=== PATIENT | female | born 1985 | race Caucasian/White ===

== ENCOUNTER 2020-05-27 19:50 | Emergency (ER) | payer SELFPAY ==
[~2020-05-27] VITALS: Ht 170.2 cm; Wt 95.5 kg
--- NOTE | 2020-05-27 19:54 | PHYS DOC ---
Past History Past Medical History: No Pertinent History Past Surgical History: Other Alcohol Use: Rarely Drug Use: None General Adult HPI: HPI: ".. I ve been sick since yesterday.. angella more on Lt. lower.. it angella like UTI.. but not like that .. nauseated.. I hurt.. " Patient is a 35 year old female who presents with above hx and complaints of Lt flank back and abdomen pain. No history of travel. No history of severe ill contacts. No history of trauma. No history of bad food intake. Pain has been present on the left lower flank and abdomen since yesterday. No history of ovarian cyst. No history of colitis with her family members. No history of kidney stones of her family members. Pt. follows with [facility]. Pt. smokes tobacco and marijuana Review of Systems: Review of Systems: Constitutional: Denies fever or chills Eyes: Denies change in visual acuity HENT: Denies nasal congestion or sore throat Respiratory: Denies cough or shortness of breath Cardiovascular: Denies chest pain or edema GI: Complains of left abdominal pain, nausea,. Denies vomiting, bloody stools or diarrhea : Denies dysuria Musculoskeletal: Denies back pain or joint pain Integument: Denies rash Neurologic: Denies headache, focal weakness or sensory changes Endocrine: Denies polyuria or polydipsia Lymphatic: Denies swollen glands Psychiatric: Denies depression or anxiety Family History: Family History: Noncontributory to presentation Current Medications: Current Meds: See nursing for home meds Allergies: Allergies: Allergies Coded Allergies Type Severity Reaction Last Updated Verified Sulfa (Sulfonamide Antibiotics) Allergy Unknown 07/18/15 Yes Physical Exam: PE: Constitutional: Moderate acute distress, non-toxic appearance. [] HENT: Normocephalic, atraumatic, bilateral external ears normal, oropharynx moist, no oral exudates, nose normal. [] Eyes: PERRLA, EOMI, conjunctiva normal, no discharge. [] Neck: Normal range of motion, no tenderness, supple, no stridor. [] Cardiovascular:Heart rate regular rhythm, no murmur [] Lungs & Thorax: Bilateral breath sounds clear to auscultation [] Abdomen: Bowel sounds decreased, soft, mid and lower abdomen tenderness, no masses, no pulsatile masses. [] Skin: Warm, dry, no erythema, no rash. [] Back: No tenderness, no CVA tenderness. [] Extremities: No tenderness, no cyanosis, no clubbing, ROM intact, no edema. [] Neurologic: Alert and oriented X 3, normal motor function, normal sensory function, no focal deficits noted. [] Psychologic: Affect normal, judgement normal, mood normal. [] EKG: EKG: [] Radiology/Procedures: Radiology/Procedures: [][address] [address] IMAGING REPORT Signed PATIENT: LAUREANO ESTEVES ACCOUNT: [id number] : 1985 LOCATION: ER AGE: 35 SEX: F EXAM STATUS: REG ER ORD. PHYSICIAN: VALENTÍN MAGAÑA MD REASON: Left sided abdomen and chest pain PROCEDURE: ACUTE ABDOMEN SERIES Abdominal Series dated 05/27/2020. No comparison available. Clinical Indication: Abdominal pain. Findings: Single upright PA view the chest shows normal heart and mediastinal contours. The lungs are clear without focal consolidation. Vascular interstitium is within normal limits. Flat and upright views of the abdomen show nondilated gas filled loops of bowel. No air-fluid level on the upright view. Clips in the right upper quadrant compatible with prior cholecystectomy. No abnormal calcifications are identified. There is no evidence of pneumoperitoneum. Impression chest: No acute radiographic abnormality. Impression abdomen: Non-obstructive bowel gas pattern. Electronically signed by: Sundeep Mckinley MD (05/27/2020 9:58 PM) [id number] DICTATED AND SIGNED BY: SUNDEEP MCKINLEY MD DATE: 05/27/20 2158 CC: VALENTÍN MAGAÑA MD; SAFIA CLEMENT DO ~MTH0 0 Heart Score: Risk Factors: Risk Factors: DM, Current or recent (<one month) smoker, HTN, HLP, family history of CAD, obesity. Risk Scores: Score 0 - 3: 2.5% MACE over next 6 weeks - Discharge Home Score 4 - 6: 20.3% MACE over next 6 weeks - Admit for Clinical Observation Score 7 - 10: 72.7% MACE over next 6 weeks - Early Invasive Strategies Course & Med Decision Making: Course & Med Decision Making Pertinent Labs and Imaging studies reviewed. (See chart for details) Still complaints of Lt sided abdomen pain. No improvement. Declines pain meds . CT ordered. [address] 1:15. request discharge home. Patient follow-up with primary care. Patient remain on clear fluid diet. Patient return if any concerns. Patient take Tylenol and ibuprofen for pain. Impression: 1.Abdomen Pain- Lt.lower abdomen [] Dragon Disclaimer: Dragon Disclaimer: This electronic medical record was generated, in whole or in part, using a voice recognition dictation system. Departure Departure: Referrals: SAFIA CLEMENT DO (PCP) Dragon Disclaimer This chart was dictated in whole or in part using Voice Recognition software in a busy, high-work load, and often noisy Emergency Department environment. It may contain unintended and wholly unrecognized errors or omissions. Dragon Disclaimer This chart was dictated in whole or in part using Voice Recognition software in a busy, high-work load, and often noisy Emergency Department environment. It may contain unintended and wholly unrecognized errors or omissions. VALENTÍN MAGAÑA MD May 27, 2020 19:54
[2020-05-27] MEDS ORDERED: ONDANSETRON PF 4 MG/2 ML VIAL. IVP ONE (21:00)
[2020-05-27] MEDS ORDERED: IV RINGERS SOLUTION,LACTATED 1,000 ML IV SCH (21:00)
[2020-05-27] MEDS ORDERED: MORPHINE SULFATE 10 MG/ML SYRINGE. SQ ONE (21:00)
[2020-05-27] MEDS ORDERED: FAMOTIDINE 20 MG/2 ML VIAL IVP ONE (21:00)
[2020-05-27 21:05] LABS: BARBITURATES NEG (NEG); BENZODIAZEPINES NEG (NEG); CANNABINOIDS POS (NEG); COCAINE NEG (NEG); METHADONE NEG (NEG); OPIATES NEG (NEG); PHENCYCLIDINE NEG (NEG)
[2020-05-27 21:26] LABS: AMPHETAMINE/METHAMPHETAMINE NEG (NEG)
[2020-05-27 21:34] LABS: BASO % 1 % (0-3); EOS # 0.2 x10^3/uL (0.0-0.7); EOS % 2 % (0-3); HEMATOCRIT 40.2 % (36.0-47.0); HEMOGLOBIN 13.6 g/dL (12.0-15.5); LYMPH # 2.5 x10^3/uL (1.0-4.8); LYMPH % 35 % (24-48); MEAN CORPUSCULAR HEMOGLOBIN 33 pg (25-35); MEAN CORPUSCULAR HGB CONC 34 g/dL (31-37); MEAN CORPUSCULAR VOLUME 96 fL (79-100); MONO # 0.6 x10^3/uL (0.0-1.1); MONO % 9 % (0-9); NEUT # 3.9 x10^3uL (1.8-7.7); NEUT % 54 % (31-73); PLATELET COUNT 195 x10^3/uL (140-400); RED BLOOD COUNT 4.19 x10^6/uL (3.50-5.40); RED CELL DISTRIBUTION WIDTH 13.2 % (11.5-14.5); WHITE BLOOD COUNT 7.3 x10^3/uL (4.0-11.0)
[2020-05-27 21:53] LABS: GFR 62.4; POTASSIUM 3.7 mmol/L (3.5-5.1)
[2020-05-27 22:00] LABS: ALBUMIN 3.7 g/dL (3.4-5.0); DIRECT BILIRUBIN 0.1 mg/dL (0.0-0.2); TOTAL BILIRUBIN 0.2 mg/dL (0.2-1.0)
--- NOTE | 2020-05-27 22:01 | RAD ---
Abdominal Series dated 05/27/2020. No comparison available. Clinical Indication: Abdominal pain. Findings: Single upright PA view the chest shows normal heart and mediastinal contours. The lungs are clear wit hout focal consolidation. Vascular interstitium is within normal limits. Flat and upright views of the abdomen show nondilated gas filled loops of bowel. No air-fluid level o n the upright view. Clips in the right upper quadrant compatible with prior cholecystectomy. No abnor mal calcifications are identified. There is no evidence of pneumoperitoneum. Impression chest: No acute radiographic abnormality. Impression abdomen: Non-obstructive bowel gas pattern. Electronically signed by: Sundeep Mckinley MD (05/27/2020 9:58 PM) [id number]
[2020-05-27 22:20] LABS: BACTERIA,URINE FEW /HPF (0-FEW); BILIRUBIN,URINE NEG (NEG); CLARITY,URINE CLEAR; COLOR,URINE YELLOW; GLUCOSE,URINE NEG (NEG); NITRITE,URINE NEG (NEG); RBC,URINE OCC /HPF (0-2); SQUAMOUS EPITHELIAL CELL,UR OCC /LPF; UROBILINOGEN,URINE 0.2 mg/dL (0.2 mg/dL); WBC,URINE OCC /HPF (0-4)
[2020-05-28] MEDS ORDERED: ONDANSETRON PF 4 MG/2 ML VIAL. IVP ONE (00:45)
[2020-05-28] MEDS ORDERED: ONDANSETRON PF 4 MG/2 ML VIAL. ONE (01:09)
[2020-05-28 01:15] VITALS: BP 132/68
[2020-05-28] MEDS ORDERED: IOHEXOL 300 MG/ML 75 ML VIAL. IV ONE (01:15)
[2020-05-28] MEDS ORDERED: IOHEXOL 240 MG/ML 50ML VIAL. PO ONE (01:30)
== END 2020-05-28 01:25 | disposition home or self-care (01) ==
LOC: ER 19:50
DX: R10.32 Left lower quadrant pain (principal); R11.0 Nausea; Z98.890 Other specified postprocedural states; Z88.2 Allergy status to sulfonamides
CPT/HCPCS: 36415; 74022; 80048; 80076; 80307; 81001; 81025; 82150; 83690; 84702; 85025; 85610; 85730; 96361; 96372; 96374; 96375; 99284; J2270; J2405; J3490; J7120

== ENCOUNTER 2020-12-09 19:50 | Emergency (ER) | payer SELFPAY ==
[~2020-12-09] VITALS: Ht 170.2 cm; Wt 95.5 kg
--- NOTE | 2020-12-09 20:12 | PHYS DOC ---
Past History Past Medical History: Other Additional Past Medical Histor: "KIDNEY PROBLEMS" (HERMAN EGAN APRN) Past Surgical History: Cholecystectomy (HERMAN EGAN APRN) Alcohol Use: None Drug Use: None (HERMAN EGAN APRN) General Adult EDM: Chief Complaint: CHEST PAIN HPI: HPI: Patient is a 35-year-old female who presents to the ER for chest pain. Per EMS patient is Covid positive. When I entered patient's room she refused to answer any questions and continued to lay on her belly in the bed. I asked patient wh at was bringing her here and she would not answer. I told patient that I need to know what is bringing her in to the ER to be able to help her. Patient reports that she is having left-sided chest pain. She describes it as a cramp. She rates it 8 out of 10. No radiation of pain. No treatment prior to arrival. Pain is worse with inspiration and movement. No alleviating factors. Patient is also reporting nausea, vomiting, shortness of breath, lightheadedness, productive cough. Patient's vital signs are stable and she is afebrile. She was diagnosed with COVID-19 on December 05. (HERMAN EGAN APRN) Review of Systems: Review of Systems: 14 body systems of the review of systems have been reviewed. See HPI for pertinent positive and negative responses, otherwise all other systems are negative, nonpertinent or noncontributory (HERMAN EGAN APRN) Allergies: Allergies: Allergies Coded Allergies Type Severity Reaction Last Updated Verified Sulfa (Sulfonamide Antibiotics) Allergy Unknown 07/18/15 Yes (HERMAN EGAN APRN) Physical Exam: PE: Constitutional: Well developed, well nourished, no acute distress, non-toxic appearance. [] HENT: Normocephalic, atraumatic Eyes: PERRLA, EOMI, conjunctiva normal, no discharge. [] Neck: Normal range of motion, no tenderness, supple, no stridor. [] Cardiovascular:Heart rate regular rhythm, no murmur, no chest wall tenderness with palpation [] Lungs & Thorax: Lung sounds coarse Abdomen: Bowel sounds normal, soft, no tenderness, no masses, no pulsatile masses. [] Skin: Warm, dry, no erythema, no rash. [] Back: Normal range of motion Extremities: No tenderness, no cyanosis, no clubbing, ROM intact, no edema. [] Neurologic: Alert and oriented X 3, normal motor function, normal sensory function, no focal deficits noted. [] Psychologic: Affect normal, judgement normal, mood normal. [] (HERMAN EGAN APRN) Current Patient Data: Labs: Laboratory Tests Test 12/09/20 20:20 White Blood Count 5.1 x10^3/uL Red Blood Count 4.99 x10^6/uL Hemoglobin 16.3 g/dL Hematocrit 47.0 % Mean Corpuscular Volume 94 fL Mean Corpuscular Hemoglobin 33 pg Mean Corpuscular Hemoglobin Concent 35 g/dL Red Cell Distribution Width 12.9 % Platelet Count 148 x10^3/uL Neutrophils (%) (Auto) 51 % Lymphocytes (%) (Auto) 36 % Monocytes (%) (Auto) 12 % Eosinophils (%) (Auto) 1 % Basophils (%) (Auto) 1 % Neutrophils # (Auto) 2.6 x10^3uL Lymphocytes # (Auto) 1.8 x10^3/uL Monocytes # (Auto) 0.6 x10^3/uL Eosinophils # (Auto) 0.0 x10^3/uL Basophils # (Auto) 0.0 x10^3/uL Prothrombin Time 11.0 SEC Prothromb Time International Ratio 1.1 Activated Partial Thromboplast Time 27 SEC D-Dimer (Tamara) 0.32 mg/L Sodium Level 140 mmol/L Potassium Level 3.8 mmol/L Chloride Level 103 mmol/L Carbon Dioxide Level 22 mmol/L Anion Gap 15 Blood Urea Nitrogen 12 mg/dL Creatinine 0.8 mg/dL Estimated GFR (Cockcroft-Gault) 80.7 BUN/Creatinine Ratio 15 Glucose Level 95 mg/dL Calcium Level 9.1 mg/dL Total Bilirubin 0.5 mg/dL Aspartate Amino Transf (AST/SGOT) 29 U/L Alanine Aminotransferase (ALT/SGPT) 50 U/L Alkaline Phosphatase 98 U/L Troponin I Quantitative < 0.017 ng/mL Total Protein 8.0 g/dL Albumin 4.3 g/dL Albumin/Globulin Ratio 1.2 Current Medications Medications (Trade) Dose Ordered Sig/Parag Route PRN Reason Start Time Stop Time Status Last Admin Dose Admin Iohexol (Omnipaque 300 Mg/ml) 75 ml 1X ONCE IV 8/6/21 20:45 12/09/20 20:46 DC 12/09/20 21:42 Info (Do NOT chart on this entry -- for MONITORING) 1 each PRN DAILY PRN MC SEE COMMENTS 12/09/20 20:45 12/11/20 20:44 (HERMAN EGAN APRN) EKG: EKG: EKG performed by ER staff at 1959 shows sinus rhythm, no STEMI as read by Dr. Franz. [] (HERMAN EGAN APRN) EKG: My interpretation EKG shows a sinus bradycardia 54 bpm. No findings of acute STEMI of contralateral changes. Essentially a normal EKG. Time EKG is 1959 hrs. (VALENTÍN FRANZ MD) Radiology/Procedures: Radiology/Procedures: [] (HERMAN EGAN APRN) Radiology/Procedures: [address] [address] IMAGING REPORT Signed PATIENT: LAUREANO ESTEVES ACCOUNT: [id number] : 1985 LOCATION: ER AGE: 35 SEX: F EXAM STATUS: PRE ER ORD. PHYSICIAN: HERMAN EGAN APRN REASON: Covid positive, cp PROCEDURE: CHEST AP ONLY XR CHEST 1V History: Reason: Covid positive, cp / Spl. Instructions: / History: Comparison: None. Findings: No consolidation or pleural effusion. Normal heart size. No pneumothorax. Impression: 1. No acute cardiopulmonary process. Electronically signed by: Carrillo Zelaya DO (12/09/2020 10:25 PM) [facility] DICTATED AND SIGNED BY: CARRILLO ZELAYA DO DATE: 12/09/20 8132 CC: VALENTÍN FRANZ MD; SAFIA CLEMENT DO; HERMAN EGAN APRN ~MTH0 [address] [address] IMAGING REPORT Signed PATIENT: LAUREANO ESTEVES ACCOUNT: [id number] : 1985 LOCATION: ER AGE: 35 SEX: F EXAM STATUS: PRE ER ORD. PHYSICIAN: HERMAN EGAN APRN REASON: OMNI 300, 75ML IV.Covid positive, chest pain PROCEDURE: CT CHEST W/CONTRAST INDICATION: Reason: OMNI 300, 75ML IV.Covid positive, chest pain / Spl. Ins tructions: / History: COMPARISON: Chest x-ray from same day TECHNIQUE: Axial CT images obtained through the chest. Intravenous contrast utilized. Angiogram 3D images processed per protocol. One or more of the following individualized dose reduction techniques were utilized for this examination: 1. Automated exposure control; 2. Adjustment of the mA and/or kV according to patient size; 3. Use of iterative reconstruction technique. FINDINGS: No evidence of pneumothorax. Linear opacities at the lung bases as well as the right lung anteriorly. Partially visualized liver is low density. Can be seen with fatty infiltration. Heterogenous enhancement of the partially visualized spleen could be from phase of contrast but would obscure splenic lesion. There is mild prominence of the esophageal wall. The ascending thoracic aorta is mildly prominent in size measuring up to about 41 mm. No dissection flap is seen within. Suboptimal contrast for evaluation the pulmonary arteries with no embolus seen in the main, right main or left main pulmonary artery but the more peripheral vessels not well evaluated. Mild degenerative changes of spine. IMPRESSION: There is some dilatation of the ascending thoracic aorta without dissection flap. There is a couple linear opacities in the bilateral lungs which could be secondary to atelectasis or mild infiltrate Mild prominence of the esophageal wall. Would correlate with symptoms to ensure that this is not from a pathologic cause such as esophagitis. Electronically signed by: Aurea Escoto MD (12/09/2020 10:23 PM) [id number] DICTATED AND SIGNED BY: AUREA ESCOTO MD DATE: 12/09/202211 CC: VALENTÍN FRANZ MD; SAFIA CLEMENT DO; HERMAN EGAN APRN ~MTH0 0 (VALENTÍN FRANZ MD) Heart Score: C/O Chest Pain: Yes HEART Score for Chest Pain: HEART Score for Chest Pain Response (Comments) Value History Slighlty/Non-Suspicious 0 ECG Normal 0 Age < 45 0 Risk Factors No Risk Factors 0 Troponin < Normal Limit 0 Total 0 Risk Factors: Risk Factors: DM, Current or recent (<one month) smoker, HTN, HLP, family history of CAD, obesity. Risk Scores: Score 0 - 3: 2.5% MACE over next 6 weeks - Discharge Home Score 4 - 6: 20.3% MACE over next 6 weeks - Admit for Clinical Observation Score 7 - 10: 72.7% MACE over next 6 weeks - Early Invasive Strategies (HERMAN EGAN APRN) Course & Med Decision Making: Course & Med Decision Making Pertinent Labs and Imaging studies reviewed. (See chart for details) Patient is a 35-year-old female being seen for chest pain. Patient is Covid positive. Work-up in the ER consisted of blood, chest x-ray, and CT of chest, EKG. EKG unremarkable, CBC and CMP unremarkable. Patient had negative D-dimer. Patient's heart score is 0. Chest x-ray and CT scan of chest are pending at this time. I discussed patient's case with Dr. Franz. He will assume care of patient at this time 2203. (HERMAN EGAN APRN) Course & Med Decision Making See Guille charting prior shift change for detail. Pt. initially refused to see or discuss her condition with nursing practitioner. Patient had not received Covid vaccination-patient did states she would rather than get the vaccination. Patient however now feeling ill from the Covid viral syndrome and requesting all the drugs that President Carlo got. Requesting to be started on chloroquine, and large doses of antibiotics. Patient does continue to smoke tobacco and marijuana. Patient denies any history immunosuppression. Has not followed with her primary care. Patient in past has followed with Dr. Clement. Reviewed all lab patient's labs and x-rays with patient. Patient currently maintaining normal sats on room air. No elevated white count. No acute findings on chest x-ray. CT findings did show patchy infiltrates consistent with viral/Covid. No findings of pulmonary embolisms central vessels.. Encourage patient to stop smoking. Encourage patient to take Tylenol and ibu profen for discomfort. Encourage patient to hydrate. Patient encouraged to follow-up with primary care. Explained the risk of experimental drugs used currently to treat severe Covid which she does not meet the criteria. Explained the risk of transfusion of convalescent plasma. Explained the risks of spreading infection and encouraged her to wear a mask that covers her nose and mouth. ( Pt. refusing to wear while in her room). Patient to inform others who she has had contact with. Patient advised to return if she develops increased dyspnea. Patient advised this was a viral infection and large doses of antibiotics would not cure Covid infection. Instruct patient use MDI 2 puffs 4 times a day. Warned patient that her symptoms may progress to the point where she needs further evaluation or even admission but at this time did not meet that criteria. Pt. angry and feels she needs to get same meds and tx. that President Carlo received [facility] tonight. Impression: 1. COVID +, Dx 0n 12/05/20 2. Viral syndrome 3. Mild elevated monocyte 12 4. Hx. Tobacco marijuana use (VALENTÍN FRANZ MD) Dragon Disclaimer: Dragon Disclaimer: This electronic medical record was generated, in whole or in part, using a voice recognition dictation system. (HERMAN EGAN APRN) Departure Departure: Disposition: HOME / SELF CARE / HOMELESS Condition: GOOD Referrals: SAFIA CLEMENT DO (PCP) Dragon Disclaimer This chart was dictated in whole or in part using Voice Recognition software in a busy, high-work load, and often noisy Emergency Department environment. It may contain unintended and wholly unrecognized errors or omissions. (VALENTÍN FRANZ MD) Attending Signature Attending Signature I have participated in the care of this patient and I have reviewed and agree with all pertinent clinical information above including history, exam, and recommendations. (VALENTÍN FRANZ MD) HERMAN EGAN APRN Dec 09, 2020 20:12 VALENTÍN FRANZ MD Dec 09, 2020 23:22
[2020-12-09 20:44] LABS: BASO % 1 % (0-3); EOS % 1 % (0-3); HEMOGLOBIN 16.3 g/dL (12.0-15.5); LYMPH # 1.8 x10^3/uL (1.0-4.8); LYMPH % 36 % (24-48); MEAN CORPUSCULAR HEMOGLOBIN 33 pg (25-35); MEAN CORPUSCULAR HGB CONC 35 g/dL (31-37); MEAN CORPUSCULAR VOLUME 94 fL (79-100); MONO # 0.6 x10^3/uL (0.0-1.1); MONO % 12 % (0-9); NEUT # 2.6 x10^3uL (1.8-7.7); NEUT % 51 % (31-73); PLATELET COUNT 148 x10^3/uL (140-400); RED BLOOD COUNT 4.99 x10^6/uL (3.50-5.40); RED CELL DISTRIBUTION WIDTH 12.9 % (11.5-14.5); WHITE BLOOD COUNT 5.1 x10^3/uL (4.0-11.0)
[2020-12-09] MEDS ORDERED: IOHEXOL 300 MG/ML 75 ML VIAL. IV ONE (20:45)
[2020-12-09] MEDS ORDERED: CONTRAST GIVEN. MC PRN (20:45)
[2020-12-09 21:02] LABS: ALBUMIN 4.3 g/dL (3.4-5.0); ALBUMIN/GLOBULIN RATIO 1.2 (1.0-1.7); CALCIUM 9.1 mg/dL (8.5-10.1); CREATININE 0.8 mg/dL (0.6-1.0); GFR 80.7; TOTAL BILIRUBIN 0.5 mg/dL (0.2-1.0)
[2020-12-09 21:37] LABS: POTASSIUM 3.8 mmol/L (3.5-5.1)
--- NOTE | 2020-12-09 22:25 | RAD ---
INDICATION: Reason: OMNI 300, 75ML IV.Covid positive, chest pain / Spl. Instructions: / History: COMPARISON: Chest x-ray from same day TECHNIQUE: Axial CT images obtained through the chest. Intravenous contrast utilized. Angiogram 3D images proce ssed per protocol. One or more of the following individualized dose reduction techniques were utilized for this examinat ion: 1. Automated exposure control; 2. Adjustment of the mA and/or kV according to patient size; 3 . Use of iterative reconstruction technique. FINDINGS: No evidence of pneumothorax. Linear opacities at the lung bases as well as the right lung anteriorly. Partially visualized liver is low density. Can be seen with fatty infiltration. Heterogenous enhancement of the partially visualized spleen could be from phase of contrast but would obscure splenic lesion. There is mild prominence of the esophageal wall. The ascending thoracic aorta is mildly prominent in size measuring up to about 41 mm. No dissection f lap is seen within. Suboptimal contrast for evaluation the pulmonary arteries with no embolus seen in the main, right melvin n or left main pulmonary artery but the more peripheral vessels not well evaluated. Mild degenerative changes of spine. IMPRESSION: There is some dilatation of the ascending thoracic aorta without dissection flap. There is a couple linear opacities in the bilateral lungs which could be secondary to atelectasis or mild infiltrate Mild prominence of the esophageal wall. Would correlate with symptoms to ensure that this is not from a pathologic cause such as esophagitis. Electronically signed by: Theo Escoto MD (12/09/2020 10:23 PM) [id number]
--- NOTE | 2020-12-09 22:28 | RAD ---
XR CHEST 1V History: Reason: Covid positive, cp / Spl. Instructions: / History: Comparison: None. Findings: No consolidation or pleural effusion. Normal heart size. No pneumothorax. Impression: 1. No acute cardiopulmonary process. Electronically signed by: Carrillo Young DO (12/09/2020 10:25 PM) [facility]
--- NOTE | 2020-12-09 22:50 | EKG ---
[address] [address] Test Date: 2020-12-09 Test Time: 19:59:03 Pat Name: LAUREANO ESTEVES Department: Room: Gender: F [employer] Sprinkler: : 1985 Requested By: HERMAN EGAN Order Number: [id number] Reading MD: Measurements Intervals [place] Rate: 54 P: 50 IN: 154 QRS: 19 QRSD: 80 T: 29 QT: 422 QTc: 402 Interpretive Statements SINUS RHYTHM NORMAL ECG RI6.02 No previous ECG available for comparison
[2020-12-09] MEDS ORDERED: ALBUTEROL SULFATE 8GM INHALER. INH ONE (23:30)
[2020-12-09] MEDS ORDERED: diphenhydrAMINE 50 MG/ML VIAL IVP ONE (23:30)
[2020-12-09] MEDS ORDERED: FAMOTIDINE 20 MG/2 ML VIAL IVP ONE (23:30)
[2020-12-09 23:45] VITALS: BP 105/68
== END 2020-12-09 23:56 | disposition home or self-care (01) ==
LOC: ER 19:50
DX: U07.1 COVID-19 (principal); B34.9 Viral infection, unspecified; F12.10 Cannabis abuse, uncomplicated; F17.210 Nicotine dependence, cigarettes, uncomplicated; D72.821 Monocytosis (symptomatic); Z90.49 Acquired absence of other specified parts of digestive tract
CPT/HCPCS: 36415; 71045; 71260; 80053; 84484; 85025; 85379; 85610; 85730; 93005; 94640; 96374; 96375; 99285; J1200; J3490; Q9967; 94664

== ENCOUNTER 2020-12-15 12:26 | Emergency (ER) | payer SELFPAY ==
[~2020-12-15] VITALS: Ht 172.7 cm; Wt 85.0 kg
[2020-12-15 12:59] VITALS: BP 99/76
[2020-12-15] MEDS ORDERED: PRED20TA PO (14:23)
--- NOTE | 2020-12-15 14:23 | PHYS DOC ---
Past History Past Medical History: Other Additional Past Medical Histor: "KIDNEY PROBLEMS", ENLARGED HEART Past Surgical History: Cholecystectomy Alcohol Use: Occasionally Drug Use: None General Adult EDM: Chief Complaint: SKIN RASH/ABSCESS HPI: HPI: Patient is a 35-year-old female coming in for pruritic rash to bilateral wrists, left neck, and various other parts of her body. Patient was seen here about 1 week ago for COVID-19. Patient states that she has been quarantining and been in bed. Had a negative Covid swab yesterday. Patient denies any systemic c omplaints or known allergies. Patient states she first noticed the symptoms when she was going for CT last week and the environmental health technologist test her hand before turning over to put IV in says she felt some irritation then but after she got back from CT started noticing the itching. Has been taking Benadryl and using topical creams without improvement. Denies any known allergies to latex or contrast. Denies any outdoor exposures, pet exposures, sick contacts at home. Denies any new detergents or fragrances. Review of Systems: Review of Systems: All other systems within normal limits except for as noted in the HPI Allergies: Allergies: Allergies Coded Allergies Type Severity Reaction Last Updated Verified Sulfa (Sulfonamide Antibiotics) Allergy Unknown 07/18/15 Yes Physical Exam: PE: Constitutional: Well developed, well nourished, no acute distress, non-toxic appearance. [] HENT: Normocephalic, atraumatic, bilateral external ears normal, nose normal. [] Eyes: PERRLA, conjunctiva normal, no discharge. [] Neck: No rigidity, supple, no stridor. [] Cardiovascular: Regular rate and rhythm, brisk cap refill [] Lungs & Thorax: Non labored symmetric respirations, no tachypnea or respiratory distress [] Abdomen: Soft, nondistended. Skin: Warm, dry, no erythema, blanching erythematous papular rash on wrists, small amount on left neck. Back: Unremarkable Extremities: No deformities, range of motion grossly intact, no lower extremity edema [] Neurologic: Alert and oriented X 3, no focal deficits noted. [] Psychologic: Affect normal, judgement normal, mood normal. [] Current Patient Data: Vital Signs: Vital Signs Date Time Temp Pulse Resp B/P (MAP) Pulse Ox O2 Delivery O2 Flow Rate FiO2 8/12/21 12:59 97.7 61 12 99/76 98 Room Air EKG: EKG: [] Radiology/Procedures: Radiology/Procedures: [] Heart Score: C/O Chest Pain: No Risk Factors: Risk Factors: DM, Current or recent (<one month) smoker, HTN, HLP, family history of CAD, obesity. Risk Scores: Score 0 - 3: 2.5% MACE over next 6 weeks - Discharge Home Score 4 - 6: 20.3% MACE over next 6 weeks - Admit for Clinical Observation Score 7 - 10: 72.7% MACE over next 6 weeks - Early Invasive Strategies Course & Med Decision Making: Course & Med Decision Making Pertinent Labs and Imaging studies reviewed. (See chart for details) [] Dragon Disclaimer: Dragon Disclaimer: This electronic medical record was generated, in whole or in part, using a voice recognition dictation system. Departure Departure: Impression: Primary Impression: Contact dermatitis Disposition: 01 HOME / SELF CARE / HOMELESS Condition: STABLE Referrals: SAFIA CLEMENT DO (PCP) Patient Instructions: Contact Dermatitis Scripts Prednisone (PREDNISONE) 20 Mg Tablet 1 TAB PO UD for steroid for 15 Days, #30 TAB 60 mg x 5 days, 40 mg x 5 days, 20 mg x 5 days Prov: MARTÍNEZ MACEDO MD 12/15/20 MARTÍNEZ MACEDO MD Dec 15, 2020 14:23
== END 2020-12-15 14:28 | disposition home or self-care (01) ==
LOC: ER 12:26
DX: L25.9 Unspecified contact dermatitis, unspecified cause (principal); Z88.2 Allergy status to sulfonamides
CPT/HCPCS: 99283